=== PATIENT | female | born 1995 | race Two or more races ===

== ENCOUNTER 2019-07-22 20:08 | Emergency (ER) | payer OTHER ==
[~2019-07-22] VITALS: Ht 170.2 cm; Wt 141.1 kg
--- NOTE | 2019-07-22 20:10 | NUR ---
PT PRESENTED TO THE ER WITH A C/O ANXIETY. PT STATED THAT SHE IS FEELING CONFUSED AT TIMES AND IS NOT SURE IF THE ANXIETY AND CONFUSION IS FROM THE NEWS OF THE LLE BLOOD CLOT. PT STATED THAT SHE WAS DX TODAY AT [facility] WITH A LLE BLOOD CLOT. PT HAS ALREADY STARTED ELIQUIS AND TAKEN HER DOSE FOR TODAY. PT AMBULATED TO THE BATHROOM WITH A STEADY GAIT. URINE SAMPLE WAS OBTAINED AND SENT TO LAB. PT AMBULATED TO ER 4 AND STARTED TO CRY WHEN ASKED HOW SHE WAS FEELING. PT'S FRIEND IS AT THE BEDSIDE. PT REC'D 3 WARM BLANKETS AND IS AWAITING EVAL BY .
--- NOTE | 2019-07-22 21:02 | NUR ---
DR ESCALANTE IS AT THE BEDSIDE.
--- NOTE | 2019-07-22 21:52 | NUR ---
Patient discharged to home in stable condition. Written and verbal after care instructions given. Patient verbalizes understanding of instruction. PT REC'D A REFERRAL TO [facility]. VSS
[2019-07-22 21:54] VITALS: BP 128/74
== END 2019-07-22 21:55 | disposition home or self-care (01) ==
LOC: ER 20:14
DX: F41.9 Anxiety disorder, unspecified (principal); I82.402 Acute embolism and thrombosis of unspecified deep veins of left lower extremity; Z88.8 Allergy status to other drugs, medicaments and biological substances